=== PATIENT | female | born 1990 | race American Indian/Alaskan Native ===

== ENCOUNTER → 2024-05-11 | Outpatient (CLI) | payer MEDICAID, SELFPAY ==
--- NOTE | 2024-05-11 09:00 | XR_ITS ---
Examination: Upper GI series with KUB Esophagram, standard Fluoroscopy 13 spot fluoroscopic films of the esophagus and stomach Exam date and time: May 11, 2024 1045 hours INDICATIONS: Preop for bariatric surgery clearance TECHNIQUE AND FINDINGS: [employer] AP supine abdomen moderate stool throughout the colon Patient swallowed thin barium, 13 spot films of the esophagus stomach and duodenum obtained Fluoroscopy 0.15 minutes Primary peristaltic esophageal waves noted No esophageal lesion depicted No esophageal reflux No gastric mass deformity or ulceration Duodenal bulb expands symmetrically Duodenal sweep unremarkable IMPRESSION: Negative examination
== END | disposition home or self-care (01) ==
PROVIDERS: Referring Provider Specialist; Visit Provider Specialist
DX: K21.9 Gastro-esophageal reflux disease without esophagitis (principal)
CPT/HCPCS: 74240

== ENCOUNTER → 2024-07-18 | Outpatient (CLI) | payer MEDICAID, SELFPAY ==
--- NOTE | 2024-07-18 10:15 | XR_ITS ---
Examination: PA lateral chest 2 views Technique: Upright PA lateral chest 2 views Exam date and time: July 18, 2024 10:50 AM Comparison August 14, 2013 Indications: Preop bariatric surgery, history of heartburn and gastroesophageal reflux Findings: Normal heart size Lungs are clear. The osseous structures are intact Impression: No active disease
== END | disposition home or self-care (01) ==
LOC: CDIM 10:04
PROVIDERS: PCP Nurse Practitioner Family; Referring Provider Nurse Practitioner Family; Visit Provider Nurse Practitioner Family
DX: Z01.818 Encounter for other preprocedural examination (principal); Z98.84 Bariatric surgery status
CPT/HCPCS: 71046

== ENCOUNTER 2025-03-25 08:04 | Observation (INO) | payer MEDICAID, SELFPAY ==
[2025-03-25 06:50] VITALS: BMI 30.8
[2025-03-25 07:04] VITALS: BP 132/79; PULSE 80; RESP 17; TEMP 36.7; O2SAT 99
--- NOTE | 2025-03-25 07:39 | PD.EDRME ---
Rapid Medical Screening Exam RME Arrival date/time: 03/25/25 06:48 This is a 34 year old female with complaints of dysuria. Patient states she is approximately 24 weeks . Patient is a 11 para 2. 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 Patient denies abdominal pain back pain. Patient was sent to OB after given a urine sample. I have greeted and performed a focused initial assessment of this patient. Initial appropriate labs ordered at this time. A comprehensive ED assessment and evaluation of the patient and analysis of all test and completion of medical decision making process will be conducted by additional ED provider. Chief Complaint: Urogenital-Female Time Seen by Provider: 03/25/25 07:07 Vital signs: Vital Signs Temperature 98.1 F 03/25/25 07:04 Pulse Rate 80 03/25/25 07:04 Respiratory Rate 17 03/25/25 07:04 Blood Pressure 132/79 H 03/25/25 07:04 Pulse Oximetry (%) 99 03/25/25 07:04 Oxygen Delivery Method Room Air 03/25/25 07:04 Exam: Patient alert oriented, breathing even unlabored, GCS 15 Clinical Impression: Possible UTI UA pending
[2025-03-25 07:50] LABS: Collection Type, Urine Voided
[2025-03-25 07:59] VITALS: BP 117/69; PULSE 71; RESP 18; RESP 99; TEMP 36.9; BMI 30.7
[2025-03-25 08:37] LABS: Bilirubin,Urine Negative (Negative); Blood,Urine 3+ (Negative); Clarity,Urine Turbid (Clear/Hazy); Color,Urine Yellow (Lt Yel-Yel); Culture Indicated,Urine Yes; Glucose, Urine Negative (Negative); Ketones,Urine Negative (Negative); Leukocyte Esterase,Urine Positive (Negative); Nitrite,Urine Negative (Negative); PH,Urine 6.5 (5.0-7.0); Protein,Urine 3+ (Neg - Trace); RBC,Urine 2894 /hpf (0-3); Specific Gravity,Urine 1.026 (1.001-1.035); Squamous Epithelial Cell,Urine 4 /hpf (0-5); Transitional Epi Cells,Urine 5 /hpf (0-5); Urobilinogen,Urine Negative mg/dL (0.0-1.0); WBC,Urine 1042 /hpf (0-5)
[2025-03-25] MEDS: cefTRIAXone 1,000 MG, LIDOCAINE 1% 20 ML 2.1 ML IM (08:59)
== END 2025-03-25 09:10 | disposition home or self-care (01) ==
PROVIDERS: Nurse Practitioner Family; Admitting Provider Obstetrics & Gynecology; PCP Nurse Practitioner Family; Visit Provider Obstetrics & Gynecology
DX: O26.892 Other specified pregnancy related conditions, second trimester (principal); Z3A.24 24 weeks gestation of pregnancy; R30.0 Dysuria; R35.0 Frequency of micturition
CPT/HCPCS: 59025; 59899; 81001; 87086; 96372; 99281; G0378; J0696; J3490